=== PATIENT | male | born 1970 | race Caucasian/White ===

== ENCOUNTER 2021-08-04 05:19 | Observation (INO) ==
[2021-08-04] MEDS ORDERED: 0.9 % Sodium Chloride 1,000 ML IVC ONE ×2 (05:48→05:55)
[2021-08-04] MEDS ORDERED: *HR* LORazepam 2 MG/ML VIAL IVP ONE ×2 (05:55→21:50)
[2021-08-04 06:06] LABS: Basophils % 0.2 %; Eosinophils % 0.1 %; Hematocrit 38.5 % (37.5-50.1); Hemoglobin 13.5 g/dL (12.9-16.9); Immature Granulocytes % 0.4 % (0-4); Lymphocytes # 2.7 K/mcL (0.6-4.6); Lymphocytes % 16.4 %; Mean Corpuscular HGB Conc 35.1 g/dL (31.6-35.5); Mean Corpuscular Hemoglobin 29.4 pg (28.0-33.3); Mean Corpuscular Volume 83.9 fL (83.0-100.0); Mean Platelet Volume 11.4 fL (9.4-12.4); Monocytes # 2.1 K/mcL (0.0-1.3); Monocytes % 12.5 %; Neutrophils # 11.6 K/mcL (1.6-8.9); Platelet Count 257 K/mcL (140-400); Red Blood Count 4.59 M/mcL (4.19-5.50); Red Cell Distribution Width 12.4 % (11.5-14.5); Segmented Neutrophils % 70.4 %; White Blood Count 16.4 K/mcL (4.3-11.1)
[2021-08-04 06:33] LABS: Alanine Aminotransferase 203 Units/L (7-52); Albumin 4.1 g/dL (3.5-5.7); Albumin/Globulin Ratio 1.3 (1.1-2.2); Alkaline Phosphatase 49 Units/L (34-104); Aspartate Amino Transferase 397 Units/L (13-39); BUN/Creatinine Ratio 20 (6-26); Bilirubin,Direct 0.3 mg/dL (0.0-0.2); Bilirubin,Indirect 0.6 mg/dL (0.0-1.0); Bilirubin,Total 0.9 mg/dL (0.3-1.0); Blood Urea Nitrogen 38 mg/dL (6-20); Calcium 9.5 mg/dL (8.6-10.3); Carbon Dioxide 25 mEq/L (23-29); Chloride 98 mEq/L (98-107); Ethanol < 10 mg/dL (Less than 10); Globulin 3.2 g/dL (2.4-3.5); Glucose 89 mg/dL (70-105); Osmolality,Calculated 289 (280-300); Potassium 3.6 mEq/L (3.5-5.1); Sodium 135 mEq/L (136-145); Total Protein 7.3 g/dL (6.4-8.9); Troponin I 0.05 ng/mL (< 0.04); eGFR For African Americans 46 (> 60); eGFR For Non-African Americans 38 (> 60)
[2021-08-04] MEDS ORDERED: Isovue-370 500 ML BOTTLE IVP ONE ×2 (06:34→06:35)
[2021-08-04 07:18] LABS: Bilirubin,Urine Negative (Negative); Blood,Urine Large (Negative); Clarity,Urine Turbid (Clear); Color,Urine Yellow (Yellow); Glucose,Urine (UA) 30 mg/dL (Normal); Ketones,Urine 10 mg/dL (Negative); Leukocyte Esterase,Urine Negative (Negative); Mucus,Urine Few per lpf (None-Few); Nitrite,Urine Negative (Negative); PH,Urine 5.5 pH Units (5.0-8.0); Protein,Urine 50 mg/dL (Neg-Trace); RBC,Urine 0-3 per hpf (0-3); Specific Gravity,Urine 1.024 (1.010-1.025); Squamous Epithelial Cell,Urine Few per hpf (None-Few); Urobilinogen,Urine Normal (Normal)
[2021-08-04 07:42] LABS: Amphetamine Screen,Urine Negative ng/mL (Cutoff=1000); Barbiturate Screen,Urine Negative ng/mL (Cutoff=200)
[2021-08-04 07:44] LABS: Benzodiazepines Screen,Urine Negative ng/mL (Cutoff=300); Cannabinoid Screen,Urine Negative ng/mL (Cutoff = 50); Cocaine Screen,Urine Negative ng/mL (Cutoff= 300); Opiate Screen,Urine Negative ng/mL (Cutoff=300); Phencyclidine Screen,Urine Negative ng/mL (Cutoff=25)
[2021-08-04] MEDS ORDERED: cefTRIAXone 2,000 MG in Water for inj. (sterile) 20 ML IVP ONE (07:52)
[2021-08-04] MEDS ORDERED: Acyclovir 850 MG in D5% in Water 250 ML IVPB ONE (07:53)
[2021-08-04] MEDS ORDERED: Vancomycin 1,750 MG/517.5 ML IV.SOLN IVPB ONE (08:00)
[2021-08-04] MEDS ORDERED: Ondansetron 4 MG/2 ML VIAL IVP PRN (08:01)
[2021-08-04] MEDS ORDERED: MOM Conc 10 ML UD.LIQ PO PRN (08:01)
[2021-08-04] MEDS ORDERED: Acetaminophen 325 MG TABLET PO PRN (08:01)
[2021-08-04] MEDS ORDERED: Naloxone 0.4 MG/ML INJ IVP PRN (08:01)
[2021-08-04] MEDS ORDERED: Mag Hydrox/Al Hydrox/Simeth 30 ML UDC PO PRN (08:01)
[2021-08-04] MEDS ORDERED: Vancomycin 1,750 MG in 0.9 % Sodium Chloride 250 ML IVPB SCH (10:00)
[2021-08-04 10:13] LABS: Bacteria,Urine Few per hpf (None-Few)
[2021-08-04 10:15] LABS: Renal Epithelial Cells,Urine Moderate per hpf (None-Few); Transitional Epi Cells,Urine Few per hpf (None-Few)
[2021-08-04 10:28] LABS: Hyaline Casts,Urine Few per lpf (None Seen)
[2021-08-04 10:55] LABS: Creatine Kinase 11844 Units/L (30-223)
[2021-08-04] MEDS ORDERED: Ampicillin 2,000 MG in 0.9 % Sodium Chloride Mini Bag 100 ML IVPB SCH (12:00)
[2021-08-04 13:26] LABS: VBG HCO3 25 mEq/L (21-27); VBG PCO2 49 mmHg (41-51); VBG PH 7.32 pH Units (7.32-7.42); VBG PO2 52 mmHg (25-50)
[2021-08-04 13:34] LABS: INR 1.3; Prothrombin Time 14.4 Seconds (9.4-12.1)
[2021-08-04 13:37] LABS: Activated Partial Thrombo Time 24.1 Seconds (26.0-36.0)
[2021-08-04 13:55] LABS: BUN/Creatinine Ratio 25 (6-26); Blood Urea Nitrogen 29 mg/dL (6-20); C-Reactive Protein 47 mg/L (Less than 10); Calcium 8.1 mg/dL (8.6-10.3); Carbon Dioxide 26 mEq/L (23-29); Chloride 101 mEq/L (98-107); Glucose 89 mg/dL (70-105); Osmolality,Calculated 285 (280-300); Potassium 3.5 mEq/L (3.5-5.1); Sodium 135 mEq/L (136-145); eGFR For African Americans > 60 (> 60); eGFR For Non-African Americans > 60 (> 60)
[2021-08-04 14:06] LABS: Hepatitis B Surface Antigen Nonreactive (Nonreactive)
[2021-08-04 14:08] LABS: Thyroid Stimulating Hormone 0.683 mcIU/mL (0.340-5.600)
[2021-08-04] MEDS: 0.9 % Sodium Chloride 1,000 ML IVC SCH ×3 (14:18→20:05)
[2021-08-04 14:26] LABS: Influenza A PCR Negative (Negative); Influenza B PCR Negative (Negative); Resp. Syncytial Virus PCR Negative (Negative)
[2021-08-04 14:27] LABS: SARS-CoV-2 by PCR (In House) Negative (Negative)
[2021-08-04] MEDS: *HR* Heparin 5,000 UNIT/ML VIAL SQ SCH ×2 (14:34→21:09)
[2021-08-04 14:35] LABS: Hepatitis B Core IgM Nonreactive (Nonreactive)
[2021-08-04 14:36] LABS: Hepatitis C Virus Antibody Nonreactive (Nonreactive)
[2021-08-04 14:37] LABS: Hepatitis A Antibody IgM Nonreactive (Nonreactive)
[2021-08-04 15:05] LABS: Vitamin B12 236 pg/mL (250-1100)
[2021-08-04] MEDS ORDERED: WATER IVPB SCH (16:00)
[2021-08-04] MEDS ORDERED: D5 IVPB SCH (16:00)
[2021-08-04] MEDS ORDERED: ACYCLOVIR IVPB SCH (16:00)
[2021-08-04] MEDS ORDERED: Cyanocobalamin (B-12) 1,000 MCG/ML VIAL IM ONE (16:04)
[2021-08-04 19:34] LABS: Creatine Kinase > 20000 Units/L (30-223)
[2021-08-04 21:30] LABS: Troponin I 0.04 ng/mL (< 0.04)
[2021-08-05] MEDS: 0.9 % Sodium Chloride 1,000 ML IVC SCH ×6 (00:30→12:04)
[2021-08-05 03:28] VITALS: O2SAT 96
[2021-08-05 05:50] LABS: BUN/Creatinine Ratio 26 (6-26); Blood Urea Nitrogen 22 mg/dL (6-20); Carbon Dioxide 29 mEq/L (23-29); Chloride 102 mEq/L (98-107); Potassium 3.4 mEq/L (3.5-5.1); Sodium 135 mEq/L (136-145)
[2021-08-05 05:51] LABS: Calcium 8.1 mg/dL (8.6-10.3); Glucose 113 mg/dL (70-105); Magnesium 2.1 mg/dL (1.6-2.6); Osmolality,Calculated 284 (280-300); Phosphorous 2.6 mg/dL (2.7-4.5); eGFR For African Americans > 60 (> 60); eGFR For Non-African Americans > 60 (> 60)
[2021-08-05] MEDS: *HR* Heparin 5,000 UNIT/ML VIAL SQ SCH (05:56)
[2021-08-05 06:08] LABS: Basophils % 0.5 %; Eosinophils # 0.3 K/mcL (0.0-0.6); Eosinophils % 3.2 %; Hematocrit 36.4 % (37.5-50.1); Hemoglobin 12.6 g/dL (12.9-16.9); Immature Granulocytes % 0.5 % (0-4); Lymphocytes # 2.2 K/mcL (0.6-4.6); Lymphocytes % 24.9 %; Mean Corpuscular HGB Conc 34.6 g/dL (31.6-35.5); Mean Corpuscular Hemoglobin 30.1 pg (28.0-33.3); Mean Corpuscular Volume 87.1 fL (83.0-100.0); Mean Platelet Volume 11.7 fL (9.4-12.4); Monocytes # 1.1 K/mcL (0.0-1.3); Monocytes % 12.6 %; Neutrophils # 5.1 K/mcL (1.6-8.9); Platelet Count 220 K/mcL (140-400); Red Blood Count 4.18 M/mcL (4.19-5.50); Red Cell Distribution Width 12.7 % (11.5-14.5); Segmented Neutrophils % 58.3 %; White Blood Count 8.7 K/mcL (4.3-11.1)
[2021-08-05 06:22] LABS: Albumin 3.4 g/dL (3.5-5.7); Albumin/Globulin Ratio 1.2 (1.1-2.2); Bilirubin,Direct 0.1 mg/dL (0.0-0.2); Bilirubin,Indirect 0.3 mg/dL (0.0-1.0); Bilirubin,Total 0.4 mg/dL (0.3-1.0); Globulin 2.8 g/dL (2.4-3.5); Total Protein 6.2 g/dL (6.4-8.9)
[2021-08-05] MEDS ORDERED: *HR* Enoxaparin 40 MG/0.4 ML SYRINGE SQ SCH (07:00)
[2021-08-05] MEDS ORDERED: Vancomycin 1,750 MG/517.5 ML IV.SOLN IVPB SCH (08:00)
[2021-08-05 08:23] VITALS: BP 163/79; PULSE 79; TEMP 98.5
[2021-08-05] MEDS ORDERED: cefTRIAXone 2,000 MG in Water for inj. (sterile) 20 ML IVP SCH (09:00)
[2021-08-05] MEDS ORDERED: Cyanocobalamin (B-12) 1,000 MCG TABLET PO SCH (09:00)
[2021-08-05] MEDS ORDERED: 0.9 % Sodium Chloride 1,000 ML IVC SCH (11:00)
[2021-08-05] MEDS ORDERED: 0.9 % Sodium Chloride 1,000 ML ONE (11:06)
[2021-08-05 15:45] LABS: Procalcitonin 0.08 ng/mL (0.00-0.15)
[2021-08-06 22:37] LABS: Amphetamines NEGATIVE ng/mL (Cutoff 20); Barbiturates NEGATIVE ng/mL (Cutoff 50); Benzodiazepines NEGATIVE ng/mL (Cutoff 50); Buprenorphine NEGATIVE ng/mL (Cutoff 1); Cocaine NEGATIVE ng/mL (Cutoff 20); Methadone NEGATIVE ng/mL (Cutoff 25); Opiates NEGATIVE ng/mL (Cutoff 20); Phencyclidine NEGATIVE ng/mL (Cutoff 10)
[2021-08-07 11:51] LABS: Methamphetamines POSITIVE ng/mL (Cutoff 20)
[2021-08-08 14:51] LABS: Methylenedioxyamphetamine <20 ng/mL; Methylenedioxymethamphetamine <20 ng/mL
[2021-08-09 11:17] LABS: Methamphetamine Confirmation 63 ng/mL; Methylenedioxyethylamphetamine <20 ng/mL
== END 2021-08-05 12:10 | disposition left against medical advice (07) ==
LOC: 2ANU 05:19 → EMEROOARM 05:19 → 2ANU 16:53
PROVIDERS: ADMIT Internal Medicine; ATTEND Internal Medicine